=== PATIENT | male | born 1985 | race Caucasian/White ===

== ENCOUNTER 2016-04-16 13:50 | Emergency (ER) | payer SELFPAY ==
[~2016-04-16] VITALS: Ht 182.9 cm; Wt 100.0 kg
[~2016-04-16 13:50] MED LIST: FISH1360; GLUC250C5
[2016-04-16 13:52] VITALS: BP 132/67; PULSE 74; RESP 12; TEMP 98.1; O2SAT 99
[2016-04-16 14:15] VITALS: BP 121/60; PULSE 73; RESP 18; TEMP 98.6; O2SAT 100
--- NOTE | 2016-04-16 14:27 | PD ---
HPI Chief Complaint: Respiratory Symptoms Time Seen by Provider: 14:23 Travel History International Travel<30 days: No Contact w/Intl Traveler<30days: No History of Present Illness HPI Patient comes in with concerns of possible TB exposure. Patient reports that his roommate had a positive PPD test yesterday and after googling symptoms of tuberculosis decided to come to the emergency department further treatment and evaluation. Patient states that he has lost approximately 3-4 pounds over the past month but started swimming again but hasn't in a few days. Patient also reports for the past week he has not been sleeping well and some nights sweats. Patient denies any known fever, cough, chest pain, shortness breath, nausea, vomiting, or abdominal pain. Patient denies his roommate traveling out of the country or being around anyone else that is traveled outside the country. PFSH Past Medical History Medical History: Denies Significant Hx Diminished Hearing: No Musculoskeletal: Yes (L Wrist Surgery ) Tetanus Vaccination: Unknown Influenza Vaccination: Yes Past Surgical History Surgical History: No Previous Surgery Social History Alcohol Use: Yes Tobacco Use: Yes Substance Use: No Allergies-Medications (Allergen,Severity, Reaction): Coded Allergies: No Known Allergies (Unverified , 03/21/15) Reported Meds & Prescriptions Reported Meds & Active Scripts Active Reported Glucosamine Chondroitin (Glucosamine-Chondroitin) 1 Cap Cap DAILY Fish Oil (Hasty-3 Fatty Acids) 1,360 Mg Cap BID 1700mg bid Review of Systems Except as stated in HPI: all other systems reviewed are Neg Physical Exam Narrative GENERAL: Well-developed, well nourished, in no acute distress, and non-ill appearing. SKIN: Warm and dry. HEAD: Atraumatic. Normocephalic. EYES: Pupils equal and round. EOMI. No scleral icterus. No injection or drainage. ENT: No nasal bleeding or discharge. Mucous membranes pink and moist. NECK: Trachea midline. Supple. No nuclear rigidity. CARDIOVASCULAR: Regular rate and rhythm. No murmur appreciated. RESPIRATORY: No accessory muscle use. No respiratory distress. Clear to auscultation. Breath sounds equal bilaterally. GASTROINTESTINAL: Abdomen soft, non-tender, nondistended. Hepatic and splenic margins not palpable. No pulsatile mass. MUSCULOSKELETAL: No obvious deformities. No clubbing. No cyanosis. No edema. Full range of motion. NEUROLOGICAL: Awake and alert. No obvious cranial nerve deficits. Motor grossly within normal limits. Normal speech. PSYCHIATRIC: Appropriate mood and affect; insight and judgment normal. Data Data Last Documented VS Vital Signs Date Time Temp Pulse Resp B/P Pulse Ox O2 Delivery O2 Flow Rate FiO2 04/16/16 14:15 98.6 73 18 121/60 100 04/16/16 13:52 Room Air Orders Complete Blood Count With Diff (04/16/16 14:20) Basic Metabolic Panel (Bmp) (04/16/16 14:20) Iv Access Insert/Monitor (04/16/16 14:20) Chest, Single Ap (04/16/16 14:20) Sodium Chloride 0.9% Flush (Ns Flush) (04/16/16 14:30) Tuberculin Ppd Inj (Ppd Inj) (04/16/16 14:30) Labs Laboratory Tests Test 04/16/16 14:55 White Blood Count 8.0 TH/MM3 Red Blood Count 4.56 MIL/MM3 Hemoglobin 14.4 GM/DL Hematocrit 42.2 % Mean Corpuscular Volume 92.4 FL Mean Corpuscular Hemoglobin 31.7 PG Mean Corpuscular Hemoglobin 34.3 % Concent Red Cell Distribution Width 13.4 % Platelet Count 245 TH/MM3 Mean Platelet Volume 8.3 FL Neutrophils (%) (Auto) 53.5 % Lymphocytes (%) (Auto) 32.7 % Monocytes (%) (Auto) 10.8 % Eosinophils (%) (Auto) 1.7 % Basophils (%) (Auto) 1.3 % Neutrophils # (Auto) 4.3 TH/MM3 Lymphocytes # (Auto) 2.6 TH/MM3 Monocytes # (Auto) 0.9 TH/MM3 Eosinophils # (Auto) 0.1 TH/MM3 Basophils # (Auto) 0.1 TH/MM3 CBC Comment DIFF FINAL Differential Comment Sodium Level 140 MEQ/L Potassium Level 4.1 MEQ/L Chloride Level 106 MEQ/L Carbon Dioxide Level 24.9 MEQ/L Anion Gap 9 MEQ/L Blood Urea Nitrogen 20 MG/DL Creatinine 1.09 MG/DL Estimat Glomerular Filtration 80 ML/MIN Rate Random Glucose 101 MG/DL Calcium Level 8.7 MG/DL [facility] Medical Decision Making Medical Screen Exam Complete: Yes Emergency Medical Condition: Yes Differential Diagnosis TB, feared complaint, pneumonia, electrolyte abnormality, other Narrative Course PPD was placed left forearm by RN prior to discharge. Patient in no obvious distress upon re-evaluation. All pertinent laboratory/ Radiology result(s) discussed with patient. Discussed patient with Dr. Melissa , who is in agreement with plan of care and disposition. Any questions/ concerns in reference to patient diagnosis/condition discussed and clarified prior to patient's discharge. Reinforced sheer importance of close follow up with patient's primary physician or primary care clinic. Instructed patient to return to ED immediately, if symptoms return/worsen. Pt showed understanding of above instructions. Further instructions and recommendations were detailed in discharge paperwork. Pt ambulated without difficulty out of ED at discharge. Diagnosis Primary Impression: Feared complaint without diagnosis Patient Instructions: General Instructions, Tuberculin Skin Test (ED), Tuberculosis (DC) Additional Instructions: Follow-up with your primary care physician or return here in 48-72 hours to have your TB test read. Return to the emergency department if symptoms get worse. Disposition: 01 DISCHARGE HOME Condition: Stable Kye Mcnair Apr 16, 2016 14:26
[2016-04-16] MEDS ORDERED: SODIUM CHLORIDE 0.9% FLUSH 5 ML FLUSH IVF PRN (14:30)
[2016-04-16] MEDS ORDERED: TUBERCULIN, PPD 5 UNITS/0.1 ML SYRINGE ID ONE (14:30)
--- NOTE | 2016-04-16 14:49 | RADRPT ---
EXAM DATE/TIME: 04/16/2016 14:18 [facility] COMPARISON: No previous studies available for comparison. INDICATIONS : Short of breath. MEDICAL HISTORY : Right side hemothorax in 2009 SURGICAL HISTORY : None. ENCOUNTER: Initial ACUITY: 2 days PAIN SCORE: 2/10 LOCATION: Bilateral chest FINDINGS: A single view of the chest demonstrates the lungs to be symmetrically aerated without evidence of mas s, infiltrate or effusion. The cardiomediastinal contours are unremarkable. Osseous structures are intact. CONCLUSION: No acute disease. Silver Butler MD on April 16, 2016 at 14:41 Board Certified Radiologist. This report was verified electronically.
[2016-04-16 15:16] LABS: AUTOMATED NEUTROPHIL # 4.3 TH/MM3 (1.8-7.7); BASOPHIL # 0.1 TH/MM3 (0-0.2); BASOPHIL % 1.3 % (0.0-2.0); EOSINOPHIL # 0.1 TH/MM3 (0-0.4); EOSINOPHIL % 1.7 % (0.0-4.0); HEMATOCRIT 42.2 % (39.0-51.0); HEMO FLAGS DIFF FINAL; LYMPH % 32.7 % (9.0-44.0); LYMPHOCYTE # 2.6 TH/MM3 (1.0-4.8); MEAN CELL VOLUME 92.4 FL (80.0-100.0); MEAN CORPUSCULAR HEMOGLOBIN 31.7 PG (27.0-34.0); MEAN CORPUSCULAR HGB CONC 34.3 % (32.0-36.0); MONO % 10.8 % (0.0-8.0); NEUT % 53.5 % (16.0-70.0); PLATELET COUNT 245 TH/MM3 (150-450); RED BLOOD COUNT 4.56 MIL/MM3 (4.50-5.90); RED CELL DISTRIBUTION WIDTH 13.4 % (11.6-17.2)
[2016-04-16 15:51] LABS: BICARBONATE 24.9 MEQ/L (21.0-32.0); POTASSIUM 4.1 MEQ/L (3.5-5.1)
[2016-04-16 16:53] VITALS: BP 137/67
== END 2016-04-16 16:55 | disposition home or self-care (01) ==
LOC: NEPC 13:50
DX: Z20.1 Contact with and (suspected) exposure to tuberculosis (principal); R61 Generalized hyperhidrosis; Z72.0 Tobacco use
CPT/HCPCS: 71010; 80048; 85025; 99283

== ENCOUNTER 2016-04-18 12:31 | Emergency (ER) | payer SELFPAY ==
[~2016-04-18] VITALS: Ht 188 cm; Wt 100.0 kg
[2016-04-18 12:33] VITALS: BP 121/60; PULSE 77; RESP 15; TEMP 98.2; O2SAT 96
--- NOTE | 2016-04-18 13:02 | PD ---
HPI Chief Complaint: Medical Clearance Time Seen by Provider: 12:48 Travel History International Travel<30 days: No Contact w/Intl Traveler<30days: No Traveled to known affect area: No History of Present Illness HPI 30-year-old male returns to have his PPD test checked. The patient was seen here 2 days ago and he had a PPD in his left forearm. He now comes to have it rechecked. He reports that one of his roommates recently had a positive PPD and this is why he came to days ago. His roommate has no active symptoms of tuberculosis. The patient denies any recent illness. He denies any history of HIV. He has no medical complaints at this time. PFSH Past Medical History Diminished Hearing: No Musculoskeletal: Yes (L Wrist Surgery ) Social History Alcohol Use: Yes Tobacco Use: Yes Substance Use: No Allergies-Medications (Allergen,Severity, Reaction): Coded Allergies: No Known Allergies (Unverified , 04/18/16) Reported Meds & Prescriptions Reported Meds & Active Scripts Active No Active Prescriptions or Reported Medications Review of Systems General / Constitutional: No: Fever, Chills Respiratory: No: Cough, Shortness of Breath Physical Exam Narrative GENERAL: Well-developed well-nourished male in no acute distress SKIN: Warm and dry. PPD site left forearm minimal erythema and no induration, negative HEAD: Atraumatic. Normocephalic. EYES: Pupils equal and round. No scleral icterus. No injection or drainage. ENT: No nasal bleeding or discharge. Mucous membranes pink and moist. NECK: Trachea midline. No JVD. CARDIOVASCULAR: Regular rate and rhythm. No murmur appreciated. RESPIRATORY: No accessory muscle use. Clear to auscultation. Breath sounds equal bilaterally. Data Data Last Documented VS Vital Signs Date Time Temp Pulse Resp B/P Pulse Ox O2 Delivery O2 Flow Rate FiO2 04/18/16 12:33 98.2 77 15 121/60 96 MDM Medical Decision Making Medical Screen Exam Complete: Yes Emergency Medical Condition: Yes Medical Record Reviewed: Yes Differential Diagnosis PPD recheck, tuberculosis Narrative Course 30-year-old male whose roommate recently had a positive PPD test with no active symptoms of PPD presents now to have his PPD read. The patient was seen here 2 days ago the PPD was performed in his left forearm. Examination reveals minimal erythema of the skin, no induration, negative test in this otherwise healthy individual. Diagnosis Primary Impression: PPD screening test Departure Forms: Tests/Procedures, Work Release Special Instructions: negative ppd test. Additional Instructions: Follow-up with primary care physician as needed. Return for any emergent medical conditions. Med/Other Pt SpecificInfo: No Change to Meds Scripts No Active Prescriptions or Reported Meds Disposition: 01 DISCHARGE HOME Condition: Stable Dillan Hawkins Apr 18, 2016 13:02
== END 2016-04-18 14:18 | disposition home or self-care (01) ==
LOC: NETRI 12:31
DX: Z11.1 Encounter for screening for respiratory tuberculosis (principal)
CPT/HCPCS: 99281

== ENCOUNTER 2017-02-09 09:46 | Emergency (ER) | payer OTHER ==
[~2017-02-09] VITALS: Ht 185.4 cm; Wt 97.0 kg
[2017-02-09 10:04] VITALS: BP 152/73; PULSE 74; RESP 17; TEMP 99; O2SAT 100
--- NOTE | 2017-02-09 10:07 | PD ---
HPI Chief Complaint: Laceration/Skin Injury Time Seen by Provider: 10:00 Travel History International Travel<30 days: No Contact w/Intl Traveler<30days: No Traveled to known affect area: No History of Present Illness HPI This is a 31-year-old male who presents to the emergency department having had a chainsaw backfired on him while he was cutting trees injuring his left hand. He has moderate severity pain involving the left hand, constant, throbbing, with no associated weakness. He does report a little bit of numbness in his thumb. He has a history of prior surgeries on that hand in the setting of an injury. He thinks his last tetanus shot was 3-1/2 years ago. [facility] Past Medical History Diminished Hearing: No Musculoskeletal: Yes (L Wrist Surgery ) Social History Alcohol Use: Yes Tobacco Use: Yes Substance Use: No Allergies-Medications (Allergen,Severity, Reaction): Coded Allergies: No Known Allergies (Unverified Adverse Reaction, Unknown, 02/09/17) Reported Meds & Prescriptions Reported Meds & Active Scripts Active No Active Prescriptions or Reported Medications Review of Systems General / Constitutional: No: Fever, Chills Cardiovascular: No: Chest Pain or Discomfort Respiratory: No: Shortness of Breath Physical Exam Narrative GENERAL: Well-appearing, no acute distress, nontoxic SKIN: 6 cm laceration on the dorsal aspect of the left hand, somewhat macerated with no exposed tendon HEAD: Atraumatic. Normocephalic. ENT: No nasal bleeding or discharge. Moist mucous membranes VASCULAR: 2+ left radial pulse with normal capillary refill MUSCULOSKELETAL: No obvious deformities. No clubbing. No cyanosis. No edema. NEUROLOGICAL: Awake and alert. No obvious cranial nerve deficits. Motor grossly within normal limits. Normal speech. PSYCHIATRIC: Appropriate mood and affect; insight and judgment normal. Data Data Last Documented VS Vital Signs Date Time Temp Pulse Resp B/P (MAP) Pulse Ox O2 Delivery O2 Flow Rate FiO2 02/09/17 10:04 99.0 74 17 152/73 (99) 100 Room Air Orders Orders Hand, Complete ([id number]) (02/09/17 ) Tetanus/Diphtheria Tox Adult (Tetanus/Di (02/09/17 10:15) Naproxen (Naprosyn) (02/09/17 10:15) Lidocaine Pf 1% Inj (Xylocaine-Mpf 1% In (02/09/17 10:15) MDM Medical Decision Making Medical Screen Exam Complete: Yes Emergency Medical Condition: Yes Interpretation(s) afebrile, no tachycardia, hypertensive xray: left hand no acute fracture Differential Diagnosis Metacarpal fracture, open fracture, tendon injury, laceration Narrative Course This is a 31-year-old male who presents to the emergency department having sustained a hand laceration a chainsaw. He has no evidence of tendon injury and he has a normal neurovascular exam with the exception of some minor light touch sensory loss on the left thumb which I suspect is a superficial nerve injury. Laceration was irrigated and repaired. Patient will be discharged on antibiotics given the contaminated nature of the wound. Diagnosis Primary Impression: Hand laceration Qualified Codes: S61.412A - Laceration without foreign body of left hand, initial encounter Patient Instructions: General Instructions Additional Instructions: If you develop fevers, redness, swelling, or discharge from your wound return to the emergency room. Keep your wound dry for 24 hours. After that time, wash gently with warm soap and water. Do not use peroxide. Do not soak in baths or go swimming. Have your sutures removed in 7-10 days. Med/Other Pt SpecificInfo: Prescription(s) given Scripts Sulfamethoxazole-Trimethoprim (Bactrim DS) 800-160 Mg Tab 1 TAB PO BID for Infection, #14 TAB 0 Refills Prov: Seema Spencer MD 02/09/17 Disposition: 01 DISCHARGE HOME Condition: Stable Seema Spencer MD Feb 09, 2017 10:07
[2017-02-09] MEDS ORDERED: LIDOCAINE HCL 1% PF 30 ML VIAL INFIL ONE (10:15)
[2017-02-09] MEDS ORDERED: TETANUS/DIPHTHERIA TOXOID ADULT 0.5 ML VIAL IM ONE (10:15)
[2017-02-09] MEDS ORDERED: NAPROXEN 500 MG TAB PO ONE (10:15)
--- NOTE | 2017-02-09 11:32 | RADRPT ---
EXAM DATE/TIME: 02/09/2017 10:06 [facility] COMPARISON: No previous studies available for comparison. INDICATIONS : Laceration to left hand. MEDICAL HISTORY : None. SURGICAL HISTORY : Left wrist surgery and tendon repair. ENCOUNTER: Initial ACUITY: 1 day PAIN SCORE: 5/10 LOCATION: Left Hand- Dorsal side towards the 1st digit. FINDINGS: Three views of the left hand demonstrate no fracture or dislocation. Mineralization is within normal limits and there is no significant arthropathy. No soft tissue abnormality or radiopaque foreign body is identified. CONCLUSION: No acute abnormality is identified. There is no radiopaque foreign body visualized. Jose Armando Kent MD on February 09, 2017 at 11:28 Board Certified Radiologist. This report was verified electronically.
--- NOTE | 2017-02-09 12:01 | PD ---
Physical Exam Time Seen by Provider: 11:57 Narrative I was asked to repair The laceration of the patient's left hand. Exam Hand 1 - Laceration (6cm) Data Data Last Documented VS Vital Signs Date Time Temp Pulse Resp B/P (MAP) Pulse Ox O2 Delivery O2 Flow Rate FiO2 02/09/17 10:04 99.0 74 17 152/73 (99) 100 Room Air Orders Orders Hand, Complete ([id number]) (02/09/17 ) Tetanus/Diphtheria Tox Adult (Tetanus/Di (02/09/17 10:15) Naproxen (Naprosyn) (02/09/17 10:15) Lidocaine Pf 1% Inj (Xylocaine-Mpf 1% In (02/09/17 10:15) MDM Supervised Visit with SHE: Yes Narrative Course I was asked to repair the laceration of the left hand. See my procedure note. Procedures Procedure Narrative LACERATION LOCATION: Dorsal aspect of left hand LENGTH: 6 cm NUMBER OF STITCHES/AUREA: 2 internal simple interrupted sutures; 18 external simple interrupted sutures REPAIR: The area of the laceration was prepped with Betadine and sterilely draped. The laceration was infiltrated with 1% lidocaine. The wound was copiously irrigated and explored without evidence of foreign body, tendon injury or neurovascular injury. The wound was closed using 4-0 Vicryl and 4-0 Prolene. This was a double layer repair. A sterile dressing was applied. The patient was advised to keep the dressing clean and dry. Patient tolerated the procedure well. Scripts No Active Prescriptions or Reported Meds Kayce Ernandez Feb 09, 2017 12:01
[2017-02-09] MEDS ORDERED: BACT800T5 PO (12:07)
== END 2017-02-09 12:28 | disposition home or self-care (01) ==
LOC: NEPD 09:46
DX: S61.412A Laceration without foreign body of left hand, initial encounter (principal); Z23 Encounter for immunization; Z72.0 Tobacco use; W31.2XXA Contact with powered woodworking and forming machines, initial encounter
CPT/HCPCS: 12002; 73130; 90471; 90714

== ENCOUNTER 2017-06-25 13:45 | Emergency (ER) | payer SELFPAY ==
[~2017-06-25] VITALS: Ht 185.4 cm; Wt 98.0 kg
[~2017-06-25 13:45] MED LIST changes: +BACT800T5 PO; -FISH1360; -GLUC250C5
[2017-06-25 13:51] VITALS: BP 121/57; PULSE 108; RESP 14; TEMP 99.2; O2SAT 97
[2017-06-25 15:08] LABS: AUTOMATED NEUTROPHIL # 6.6 TH/MM3 (1.8-7.7); BASOPHIL % 0.5 % (0.0-2.0); EOSINOPHIL % 0.1 % (0.0-4.0); HEMATOCRIT 45.6 % (39.0-51.0); HEMOGLOBIN 15.5 GM/DL (13.0-17.0); LYMPH % 20.8 % (9.0-44.0); LYMPHOCYTE # 1.9 TH/MM3 (1.0-4.8); MEAN CELL VOLUME 92.6 FL (80.0-100.0); MEAN CORPUSCULAR HEMOGLOBIN 31.5 PG (27.0-34.0); MEAN PLATELET VOLUME 7.8 FL (7.0-11.0); MONOCYTE # 0.6 TH/MM3 (0-0.9); NEUT % 71.6 % (16.0-70.0); PLATELET COUNT 299 TH/MM3 (150-450); RED BLOOD COUNT 4.92 MIL/MM3 (4.50-5.90); RED CELL DISTRIBUTION WIDTH 12.7 % (11.6-17.2); WHITE BLOOD COUNT 9.2 TH/MM3 (4.0-11.0)
[2017-06-25 15:25] LABS: ALBUMIN 4.2 GM/DL (3.4-5.0); ALT (GPT) 30 U/L (12-78); AST (GOT) 21 U/L (15-37); BICARBONATE 27.8 MEQ/L (21.0-32.0); BLOOD UREA NITROGEN 10 MG/DL (7-18); CALCIUM 9.1 MG/DL (8.5-10.1); CHLORIDE 106 MEQ/L (98-107); CREATININE 1.06 MG/DL (0.60-1.30); GLOMERULAR FILTRATION RATE 81 ML/MIN (>89); GLUCOSE,RANDOM 122 MG/DL (74-106); SODIUM (NA) 141 MEQ/L (136-145)
[2017-06-25 15:28] LABS: ALKALINE PHOSPHATASE 137 U/L (45-117); TOTAL BILIRUBIN ADULT 0.3 MG/DL (0.2-1.0); TOTAL PROTEIN 8.3 GM/DL (6.4-8.2)
--- NOTE | 2017-06-25 16:22 | PD ---
HPI Chief Complaint: Alcohol/Drug Intoxication Time Seen by Provider: 15:56 Travel History International Travel<30 days: No Contact w/Intl Traveler<30days: No Traveled to known affect area: No History of Present Illness HPI 32-year-old male presents to the emergency department with complaint of suicidal thoughts after smoking cocaine, snorting heroin and drinking alcohol for the past multiple days. He says he left rehab a week ago and he tried to get back into the retirement house today and could not get in. They told him he needed drug rehab. He states he has nowhere to go. He does not have a plan. He is scared if he continues to use drugs he is going to overdose and accidentally kill himself. denies history of suicidal attempts. Denies psychiatric history. Denies homicidal ideations. Denies auditory or visual hallucinations. Has history of IV drug use, but not recently. He denies chest pain, shortness of breath, abdominal pain, nausea, vomiting, fevers, change in urine or stool. Aggravated by drug use and not being able to get back into retirement house. No known relieving factors. Symptoms are moderate to severe in severity. Unknown duration. Unknown onset. No primary care provider. No significant past medical history. Allergies to mangoes skin and bee stings. Has no other medical complaints. No other modifying factors or associated signs and symptoms. PFSH Past Medical History Anxiety: Yes Diminished Hearing: No Musculoskeletal: Yes (L Wrist Surgery ) Past Surgical History Other Surgery: Yes (left arm repair, penetrating trauma with chest tube) Social History Alcohol Use: No Tobacco Use: Yes (chew) Substance Use: No (clean/sober) Allergies-Medications (Allergen,Severity, Reaction): Coded Allergies: No Known Allergies (Unverified Adverse Reaction, Unknown, 06/25/17) Reported Meds & Prescriptions Reported Meds & Active Scripts Active Bactrim DS (Sulfamethoxazole-Trimethoprim) 800-160 Mg Tab 1 Tab PO BID Review of Systems Except as stated in HPI: all other systems reviewed are Neg Physical Exam Narrative GENERAL: Well-nourished, well-developed male patient, in no acute distress; appears intoxicated SKIN: Warm and dry. HEAD: Atraumatic. Normocephalic. EYES: Pupils equal and round. ENT: Mucosa pink and moist. NECK: Supple. Trachea midline. CARDIOVASCULAR: Regular rate and rhythm. No murmur appreciated. RESPIRATORY: No accessory muscle use. Clear to auscultation. Breath sounds equal bilaterally. GASTROINTESTINAL: Abdomen soft, non-tender, nondistended. Hepatic and splenic margins not palpable. Bowel sounds are active 4 quadrants. MUSCULOSKELETAL: No obvious deformities. No clubbing. No cyanosis. No edema. NEUROLOGICAL: Awake and alert. Oriented 3. No obvious cranial nerve deficits. Motor grossly within normal limits. Normal speech. Moves all extremities. 5/5 strength to all extremities. PSYCHIATRIC: No delusional thought processes. No hallucinations. Data Data Last Documented VS Vital Signs Date Time Temp Pulse Resp B/P (MAP) Pulse Ox O2 Delivery O2 Flow Rate FiO2 06/25/17 13:51 99.2 108 14 121/57 (78) 97 Orders Orders Complete Blood Count With Diff (06/25/17 13:53) Comprehensive Metabolic Panel (06/25/17 13:53) Psych Screen (06/25/17 13:53) Drug Screen, Random Urine (06/25/17 13:53) Alcohol (Ethanol) (06/25/17 13:53) Labs Laboratory Tests Test 06/25/17 14:15 White Blood Count 9.2 TH/MM3 Red Blood Count 4.92 MIL/MM3 Hemoglobin 15.5 GM/DL Hematocrit 45.6 % Mean Corpuscular Volume 92.6 FL Mean Corpuscular Hemoglobin 31.5 PG Mean Corpuscular Hemoglobin Concent 34.0 % Red Cell Distribution Width 12.7 % Platelet Count 299 TH/MM3 Mean Platelet Volume 7.8 FL Neutrophils (%) (Auto) 71.6 % Lymphocytes (%) (Auto) 20.8 % Monocytes (%) (Auto) 7.0 % Eosinophils (%) (Auto) 0.1 % Basophils (%) (Auto) 0.5 % Neutrophils # (Auto) 6.6 TH/MM3 Lymphocytes # (Auto) 1.9 TH/MM3 Monocytes # (Auto) 0.6 TH/MM3 Eosinophils # (Auto) 0.0 TH/MM3 Basophils # (Auto) 0.0 TH/MM3 CBC Comment DIFF FINAL Differential Comment Blood Urea Nitrogen 10 MG/DL Creatinine 1.06 MG/DL Random Glucose 122 MG/DL Total Protein 8.3 GM/DL Albumin 4.2 GM/DL Calcium Level 9.1 MG/DL Alkaline Phosphatase 137 U/L Aspartate Amino Transf (AST/SGOT) 21 U/L Alanine Aminotransferase (ALT/SGPT) 30 U/L Total Bilirubin 0.3 MG/DL Sodium Level 141 MEQ/L Potassium Level 3.9 MEQ/L Chloride Level 106 MEQ/L Carbon Dioxide Level 27.8 MEQ/L Anion Gap 7 MEQ/L Estimat Glomerular Filtration Rate 81 ML/MIN Urine Opiates Screen POS Urine Barbiturates Screen NEG Urine Amphetamines Screen NEG Urine Benzodiazepines Screen NEG Urine Cocaine Screen POS Urine Cannabinoids Screen NEG Ethyl Alcohol Level 173 MG/DL MDM Medical Decision Making Medical Screen Exam Complete: Yes Emergency Medical Condition: Yes Medical Record Reviewed: Yes Differential Diagnosis Polysubstance abuse, substance-induced mood disorder, suicidal ideation, medical clearance for psychological evaluation Narrative Course Patient presents voluntarily. Physical examination and vital signs are essentially unremarkable. Patient has no medical complaints to report. Psych screen has been ordered. If the laboratory results are unremarkable, the patient will be medically cleared for psychiatric evaluation and disposition. Diagnosis Primary Impression: Encounter for psychological evaluation Additional Impression: Polysubstance abuse Condition: Stable Kayce Ernandez [facility] Jun 25, 2017 16:22
[2017-06-25 19:18] VITALS: BP 117/71; PULSE 82; RESP 16; O2SAT 99
[2017-06-26 00:33] VITALS: BP 132/61; PULSE 70; RESP 18; TEMP 98.3; O2SAT 98
[2017-06-26 04:46] VITALS: BP 110/51; PULSE 65; RESP 17; TEMP 98.1; O2SAT 99
--- NOTE | 2017-06-26 10:30 | PD ---
Physical Exam Date Seen by Provider: Jun 26, 2017 Time Seen by Provider: 10:27 Narrative For full history and physical examination please see previous providers note. Patient presented voluntarily to the emergency department for psychiatric evaluation. Data Data Last Documented VS Vital Signs Date Time Temp Pulse Resp B/P (MAP) Pulse Ox O2 Delivery O2 Flow Rate FiO2 06/26/17 04:46 98.1 65 17 110/51 (70) 99 Room Air Orders Orders Complete Blood Count With Diff (06/25/17 13:53) Comprehensive Metabolic Panel (06/25/17 13:53) Psych Screen (06/25/17 13:53) Drug Screen, Random Urine (06/25/17 13:53) Alcohol (Ethanol) (06/25/17 13:53) Diet Regular Basic (06/26/17 Breakfast) Ed Discharge Order (06/26/17 10:25) Labs Laboratory Tests Test 06/25/17 14:15 White Blood Count 9.2 TH/MM3 Red Blood Count 4.92 MIL/MM3 Hemoglobin 15.5 GM/DL Hematocrit 45.6 % Mean Corpuscular Volume 92.6 FL Mean Corpuscular Hemoglobin 31.5 PG Mean Corpuscular Hemoglobin Concent 34.0 % Red Cell Distribution Width 12.7 % Platelet Count 299 TH/MM3 Mean Platelet Volume 7.8 FL Neutrophils (%) (Auto) 71.6 % Lymphocytes (%) (Auto) 20.8 % Monocytes (%) (Auto) 7.0 % Eosinophils (%) (Auto) 0.1 % Basophils (%) (Auto) 0.5 % Neutrophils # (Auto) 6.6 TH/MM3 Lymphocytes # (Auto) 1.9 TH/MM3 Monocytes # (Auto) 0.6 TH/MM3 Eosinophils # (Auto) 0.0 TH/MM3 Basophils # (Auto) 0.0 TH/MM3 CBC Comment DIFF FINAL Differential Comment Blood Urea Nitrogen 10 MG/DL Creatinine 1.06 MG/DL Random Glucose 122 MG/DL Total Protein 8.3 GM/DL Albumin 4.2 GM/DL Calcium Level 9.1 MG/DL Alkaline Phosphatase 137 U/L Aspartate Amino Transf (AST/SGOT) 21 U/L Alanine Aminotransferase (ALT/SGPT) 30 U/L Total Bilirubin 0.3 MG/DL Sodium Level 141 MEQ/L Potassium Level 3.9 MEQ/L Chloride Level 106 MEQ/L Carbon Dioxide Level 27.8 MEQ/L Anion Gap 7 MEQ/L Estimat Glomerular Filtration Rate 81 ML/MIN Urine Opiates Screen POS Urine Barbiturates Screen NEG Urine Amphetamines Screen NEG Urine Benzodiazepines Screen NEG Urine Cocaine Screen POS Urine Cannabinoids Screen NEG Ethyl Alcohol Level 173 MG/DL [facility] Medical Record Reviewed: Yes Supervised Visit with SHE: No Interpretation(s) Laboratory Tests Test 06/25/17 14:15 White Blood Count 9.2 TH/MM3 Red Blood Count 4.92 MIL/MM3 Hemoglobin 15.5 GM/DL Hematocrit 45.6 % Mean Corpuscular Volume 92.6 FL Mean Corpuscular Hemoglobin 31.5 PG Mean Corpuscular Hemoglobin Concent 34.0 % Red Cell Distribution Width 12.7 % Platelet Count 299 TH/MM3 Mean Platelet Volume 7.8 FL Neutrophils (%) (Auto) 71.6 % Lymphocytes (%) (Auto) 20.8 % Monocytes (%) (Auto) 7.0 % Eosinophils (%) (Auto) 0.1 % Basophils (%) (Auto) 0.5 % Neutrophils # (Auto) 6.6 TH/MM3 Lymphocytes # (Auto) 1.9 TH/MM3 Monocytes # (Auto) 0.6 TH/MM3 Eosinophils # (Auto) 0.0 TH/MM3 Basophils # (Auto) 0.0 TH/MM3 CBC Comment DIFF FINAL Differential Comment Blood Urea Nitrogen 10 MG/DL Creatinine 1.06 MG/DL Random Glucose 122 MG/DL Total Protein 8.3 GM/DL Albumin 4.2 GM/DL Calcium Level 9.1 MG/DL Alkaline Phosphatase 137 U/L Aspartate Amino Transf (AST/SGOT) 21 U/L Alanine Aminotransferase (ALT/SGPT) 30 U/L Total Bilirubin 0.3 MG/DL Sodium Level 141 MEQ/L Potassium Level 3.9 MEQ/L Chloride Level 106 MEQ/L Carbon Dioxide Level 27.8 MEQ/L Anion Gap 7 MEQ/L Estimat Glomerular Filtration Rate 81 ML/MIN Urine Opiates Screen POS Urine Barbiturates Screen NEG Urine Amphetamines Screen NEG Urine Benzodiazepines Screen NEG Urine Cocaine Screen POS Urine Cannabinoids Screen NEG Ethyl Alcohol Level 173 MG/DL Vital Signs Date Time Temp Pulse Resp B/P (MAP) Pulse Ox O2 Delivery O2 Flow Rate FiO2 06/26/17 04:46 98.1 65 17 110/51 (70) 99 Room Air 06/26/17 00:33 98.3 70 18 132/61 (84) 98 Room Air 06/25/17 19:18 82 16 117/71 (86) 99 Room Air 06/25/17 13:51 99.2 108 14 121/57 (78) 97 Narrative Course Patient is a 32-year-old male that presented voluntarily to the emergency department for psychiatric evaluation. Patient was seen and evaluated, he was then medically cleared. Patient has been set up with outpatient rehab. Patient stable for discharge. Please see psych notes. Diagnosis Primary Impression: Encounter for psychological evaluation Additional Impression: Polysubstance abuse Referrals: [facility] Patient Instructions: General Instructions Additional Instruction: Avoid illicit drug use Avoid alcohol use Follow-up with your primary doctor Return to emergency department for any new or worsening symptoms Med/Other Pt SpecificInfo: No Change to Meds Disposition: 65 DISC TO PSYCH CARE FACILITY Condition: Stable Nelly Alvarez Jun 26, 2017 10:30
== END 2017-06-26 10:35 ==
LOC: NEPD 13:45 → NEPJ 06-26 10:35
DX: Z00.8 Encounter for other general examination (principal); F19.10 Other psychoactive substance abuse, uncomplicated; F14.10 Cocaine abuse, uncomplicated; F10.129 Alcohol abuse with intoxication, unspecified
CPT/HCPCS: 80053; 80307; 85025; 99283